=== PATIENT | male | born 1990 | race Caucasian/White ===

== ENCOUNTER 2018-09-26 13:29 | Emergency (ER) | payer SELFPAY ==
[~2018-09-26] VITALS: Ht 177.8 cm; Wt 77.1 kg
[2018-09-26 13:33] VITALS: BP 135/80
--- NOTE | 2018-09-26 13:45 | NUR ---
PT PLACED ON SILK SCREEN ETCHER
--- NOTE | 2018-09-26 13:45 | NUR ---
C/O PALPITATIONS & L SIDED CHEST PAIN AFTER DRINKING A "MONSTER ENERGY DRINK". SINUS RHYTHM 72 BPM, O2 SAT 100% RA, DENIES SOB OR DIFFICULTY BREATHING. LUNGS CLEAR BILAT, NO DISTRESS NOTED. DENIES N/V/D; SKIN IS PINK/WARM/DRY; AAOX4 WITH EVEN AND STEADY GAIT; LUNGS CLEAR BL; HR EVEN AND REGULARPATIENT STATES PAIN OF 6/10 AT THIS TIME, L SIDE CHEST, NON RADIATING; VSS; PATIENT POSITIONED FOR COMFORT; HOB ELEVATED; BEDRAILS UP X1; BED DOWN. ER MD MADE AWARE OF PT STATUS.
--- NOTE | 2018-09-26 13:57 | NUR ---
RADIOLOGY AT BEDSIDE
[2018-09-26 14:21] LABS: BASOPHILS % (AUTO) 0.3 % (0.0-2.0); EOSINOPHILS % (AUTO) 0.9 % (0.0-4.0); HEMATOCRIT 41.3 % (36-52); HEMOGLOBIN 14.1 g/dL (12.0-18.0); LYMPHOCYTES # (AUTO) 0.9 K/uL (2.0-11.5); LYMPHOCYTES % (AUTO) 20.7 % (20.5-51.1); MEAN CORPUSCULAR HEMOGLOBIN 32 pg (27-31); MEAN CORPUSCULAR HGB CONC 34 g/dL (33-37); MEAN CORPUSCULAR VOLUME 92.1 fL (80-94); MONOCYTES # (AUTO) 0.4 K/uL (0.8-1.0); MONOCYTES % (AUTO) 9.5 % (1.7-9.3); NEUTROPHILS % (AUTO) 68.6 % (42.2-75.2); PLATELET COUNT (AUTO) 187 K/uL (140-450); RED BLOOD CELL COUNT(AUTO) 4.48 MIL/uL (4.20-6.10); RED CELL DISTRIBUTION WIDTH 13.2 % (11.6-13.7); WHITE BLOOD COUNT (AUTO) 4.4 K/uL (4.8-10.8)
[2018-09-26 14:46] LABS: ANION GAP 10.8 (8-16); CARBON DIOXIDE 30.6 mmol/L (21-32); CREATININE 0.8 mg/dL (0.7-1.3); POTASSIUM 3.4 mmol/L (3.5-5.1); TOTAL BILIRUBIN 0.2 mg/dL (0.0-1.0)
--- NOTE | 2018-09-26 15:10 | NUR ---
PT RESTING IN BED, NO ACUTE DISTRESS NOTED. FAMILY MEMBER AT BEDSIDE
--- NOTE | 2018-09-26 15:12 | NUR ---
DENIES PALPITATION AT THIS TIME. DENIES N/V OR DZZINESS AT THIS TIME.
[2018-09-26 15:59] VITALS: BP 111/80
--- NOTE | 2018-09-26 16:00 | NUR ---
Patient discharged with v/s stable. Written and verbal after care instructions given and explained. Patient verbalized understanding. Ambulatory with steady gait. All questions addressed prior to discharge. Advised to follow up with PMD. Wristband removed
== END 2018-09-26 16:00 | disposition home or self-care (01) ==
LOC: MED 13:29
DX: R07.89 Other chest pain (principal); R00.2 Palpitations; R06.02 Shortness of breath; R42 Dizziness and giddiness
CPT/HCPCS: 36415; 71045; 80053; 84484; 85025; 93005; 99284; Q0092